=== PATIENT | male | born 1950 | race Caucasian/White ===

== ENCOUNTER 2016-07-07 09:23 | Day surgery (SDC) | payer MEDICARE, OTHER ==
[~2016-07-07] VITALS: Ht 172.7 cm; Wt 86.4 kg
[~2016-07-07 09:23] MED LIST: ACET325T45 PO; DOCU-144 PO; MAGN400O4 PO
[2016-07-07 09:53] VITALS: Ht 172.7 cm; Wt 86.4 kg
[2016-07-07 10:25] VITALS: BP 134/75; PULSE 70; RESP 24
[2016-07-07] MEDS ORDERED: LIDOCAINE 4% SOLUTION 50 ML BTL ONE (10:29)
[2016-07-07] MEDS ORDERED: FENTAnyl 50 MCG/ML VIAL ONE (10:56)
[2016-07-07] MEDS ORDERED: MIDAZOLAM 1 MG/ML 2 ML INJ ONE ×2 (10:57)
[2016-07-07 11:10] VITALS: BP 134/66; PULSE 66; RESP 16
--- NOTE | 2016-07-08 01:28 | GILP ---
DATE OF PROCEDURE: PROCEDURE: Esophagogastroduodenoscopy. PREOPERATIVE DIAGNOSIS: The patient presenting with history of abdominal pain for a long period of time unresponsive to routine therapy, also history of heartburn, rule out gastroesophageal reflux di sease. POSTOPERATIVE DIAGNOSES: 1. Multiple erosions in the distal esophagus. Biopsies were done. 2. Diffuse patchy gastritis of the stomach. 3. There is evidence of a small ulcer with a polypoid appearance in the midbody of the stomach. Bi opsies were done. DESCRIPTION OF PROCEDURE: After the informed written consent was obtained, the patient was asked to lie on the left lateral side. Intravenous anesthesia was given by the nurse which included 3 mg of Versed and 50 mcg of fentanyl. When the patient became somnolent, Olympus video upper endoscope was introduced into the oropharynx, then into the esophagus. Esophagus showed multiple linear erosions starting from the GE junction f or about 2 cm in length in irregular fashion. Multiple biopsies were obtained to rule out Arshad e sophagus. Scope at this time was advanced into the stomach. Stomach showed evidence of small ulcer in the midbody of the stomach with a polypoid appearance. Biopsies were obtained to rule out malig vandana. Multiple erosions noted, erythema noted in the stomach. Biopsy was done from the antrum, th e lesser curvature and the fundus to rule out H pylori infection. Duodenal mucosa appeared normal a ll the way up to the end of the third portion. Scope at this time was withdrawn and no additional a bnormalities detected, and the procedure was terminated. PLAN: Recommend proton pump inhibitor therapy and wait for the pathology report. Dictated By: VIVIAN SIMPSON/EVIN Conf#: [id number] DID#: [id number] CC: GABRIELLA WILLINGHAM MD;*EndCC*
== END 2016-07-07 12:13 | disposition home or self-care (01) ==
LOC: GIL 09:23
PROVIDERS: ATTEND Internal Medicine Gastroenterology
DX: K21.0 Gastro-esophageal reflux disease with esophagitis (principal)
CPT/HCPCS: 43239; 88305; 88312; 88313; J2250; J3010